=== PATIENT | male | born 1950 | race Caucasian/White ===

== ENCOUNTER → 2017-10-06 | Outpatient (CLI) | payer BC, MEDICARE ==
--- NOTE | 2017-10-06 10:16 | US ---
EXAMINATION TYPE: US liver DATE OF EXAM: 10/06/2017 COMPARISON: NONE CLINICAL HISTORY: Chronic Hepatitis C B18.2. Hep C, patient states no symptoms at this time EXAM MEASUREMENTS: Liver Length: 15.7 cm Gallbladder Wall: 0.2 cm CBD: 0.4 cm Right Kidney: 11.3 x 5.6 x 6.0 cm Pancreas: visualized portions wnl, partially obscured by overlying midline bowel gas Liver: Increased attenuation Gallbladder: multiple small irregularities along wall that are non mobile and without shadowing poss ible tiny polyps all measuring 3 mm or smaller in size. Evidence for sonographic Hong's sign: no CBD: visualized portions wnl, limited by overlying bowel gas Right Kidney: wnl Significant portions of pancreas are obscured by overlying bowel gas on images saved. Visualized live r is heterogeneously hyperechoic. No intrahepatic ductal dilatation is seen. Evaluation for focal mas ses is suboptimal due to the heterogeneity. No shadowing mobile gallstones. IMPRESSION: Heterogeneous hyperechoic appearance of liver could reflect product of diffuse fatty infi ltration or underlying hepatocellular disease, imaging guided random biopsy for tissue analysis can b e performed if desired.
[2017-10-09 16:58] LABS: HCV Quant Log 6.41 (<1.08)
== END | disposition home or self-care (01) ==
LOC: RADUSWWP 08:53
PROVIDERS: ATTEND Internal Medicine Gastroenterology
DX: B18.2 Chronic viral hepatitis C (principal)
CPT/HCPCS: 36415; 76705; 87522

== ENCOUNTER → 2018-01-25 | Outpatient (CLI) | payer MEDICARE ==
[2018-01-25 10:41] LABS: Albumin 4.4 g/dL (3.5-5.0); Bilirubin, Delta 0.3 mg/dL (0.0-0.2); Bilirubin,Unconjugated 0.2 mg/dL (0.0-1.1); HCT 44.4 % (39.0-53.0); HGB 14.9 gm/dL (13.0-17.5); MCHC 33.6 g/dL (31.0-37.0); MCV 95.2 fL (80.0-100.0); Mean Platelet Volume 6.8; Platelet Count 246 k/uL (150-450); RBC 4.66 m/uL (4.30-5.90); RDW 12.8 % (11.5-15.5); Total Bilirubin 0.5 mg/dL (0.2-1.3); Total Protein 7.9 g/dL (6.3-8.2); WBC 6.3 k/uL (3.8-10.6)
[2018-01-25 10:48] LABS: Prothrombin Time 9.6 sec (9.0-12.0)
[2018-01-27 14:03] LABS: HCV Quant Log 6.57 (<1.08)
== END | disposition home or self-care (01) ==
LOC: LABWHC1 09:38
PROVIDERS: ATTEND Physician Assistant
DX: B18.2 Chronic viral hepatitis C (principal)
CPT/HCPCS: 36415; 80076; 85027; 85610; 87522